=== PATIENT | male | born 1985 | race Caucasian/White ===

== ENCOUNTER 2023-05-31 07:12 | Emergency (ER) | payer OTHER ==
[2023-05-31 08:09] LABS: HEMATOCRIT 41.7 % (42.0-52.0); HEMOGLOBIN 13.4 g/dl (13.5-17.5); MEAN CORPUSCULAR HEMOGLOBIN 26.4 pg (27.0-33.0); MEAN CORPUSCULAR HGB CONC 32.1 g/dl (32.0-36.5); MEAN CORPUSCULAR VOLUME 82.1 fl (80.0-96.0); PLATELET COUNT, AUTOMATED 334 10^3/uL (150-450); RED BLOOD COUNT 5.08 10^6/uL (4.30-6.10); WHITE BLOOD COUNT 12.5 10^3/uL (4.0-10.0)
[2023-05-31 08:43] LABS: ETHYL ALCOHOL (ETHANOL) < 0.003 % (0.000-0.010)
[2023-05-31 08:45] LABS: ALBUMIN 3.7 G/DL (3.2-5.2); ALKALINE PHOSPHATASE 166 U/L (46-116); ALT/SGPT 19 U/L (7.0-40); AST/SGOT 17 U/L (<34); BILIRUBIN,DIRECT 0.3 MG/DL (<0.4); BILIRUBIN,TOTAL 0.7 MG/DL (0.3-1.2); BLOOD UREA NITROGEN 18 MG/DL (9-23); CALCIUM LEVEL 9.6 MG/DL (8.5-10.1); CARBON DIOXIDE LEVEL 26 MMOL/L (20-31); CHLORIDE LEVEL 103 MMOL/L (98-107); CREATININE FOR GFR 0.78 MG/DL (0.70-1.30); GLOMERULAR FILTRATION RATE > 60.0 (>60); GLUCOSE, FASTING 100 MG/DL (60-100); SALICYLATE LEVEL < 3.0 MG/DL (<30); SODIUM LEVEL 138 MMOL/L (136-145)
[2023-05-31 08:47] LABS: THYROID STIMULATING HORMONE 2.122 uIU/ML (0.55-4.78)
[2023-05-31] MEDS: OXAZEPAM 15MG CAP PO ONE (12:45)
[2023-05-31] MEDS ORDERED: HALOPERIDOL LACTATE 5MG/ML VIAL As Ordered ONE (12:54)
[2023-05-31] MEDS ORDERED: diphenhydrAMINE 50MG/ML VIAL As Ordered ONE (12:54)
[2023-05-31] MEDS ORDERED: LORazepam 2 MG/ML 1ML VIAL As Ordered ONE (12:54)
[2023-05-31] MEDS ORDERED: HALOPERIDOL LACTATE 5MG/ML VIAL IM ONE (12:55)
[2023-05-31] MEDS: HALOPERIDOL LACTATE 5MG/ML VIAL IM STA (12:57)
[2023-05-31] MEDS: diphenhydrAMINE 50MG/ML VIAL IM ONE (13:12)
[2023-05-31] MEDS: LORazepam 2 MG/ML 1ML VIAL IM ONE (13:15)
[2023-05-31] MEDS ORDERED: GABA600T4 PO (18:55)
[2023-05-31] MEDS ORDERED: HOME MED LIST COMPLETE! XX SCH (18:55)
[2023-05-31] MEDS ORDERED: HYDR-643 PO (18:55)
[2023-05-31] MEDS ORDERED: DOXE75CA2 PO (18:55)
[2023-06-01 01:53] VITALS: BP 109/64; TEMP 97.7; O2SAT 98
[2023-06-01 02:24] LABS: BENZODIAZEPINES URINE NEGATIVE (NEGATIVE); CANNABINOIDS URINE NEGATIVE (NEGATIVE); PHENCYCLIDINE URINE NEGATIVE (NEGATIVE)
[2023-06-01 03:04] LABS: AMPHETAMINES LEVEL URINE POSITIVE (NEGATIVE); BARBITURATES URINE NEGATIVE (NEGATIVE); COCAINE METABOLITE URINE NEGATIVE (NEGATIVE); METHADONE URINE NEGATIVE (NEGATIVE); OPIATES URINE NEGATIVE (NEGATIVE)
== END 2023-06-01 01:57 | disposition home or self-care (01) ==
LOC: M ED 07:12
DX: F29 Unspecified psychosis not due to a substance or known physiological condition (principal); F19.10 Other psychoactive substance abuse, uncomplicated; J30.81 Allergic rhinitis due to animal (cat) (dog) hair and dander
CPT/HCPCS: 80048; 80076; 80143; 80307; 82077; 84443; 85027; 96372; 99285; J1200; J1630; J2060